=== PATIENT | male | born 1965 | race Caucasian/White ===

== ENCOUNTER 2021-07-17 21:19 | Emergency (ER) | payer OTHER ==
[~2021-07-17] VITALS: Ht 188 cm; Wt 115.7 kg
[~2021-07-17 21:19] MED LIST: ACETAMINOPHEN-1 EAC1 PO; ATORVASTATIN CA40 MG PO; CLEOCIN HCL150 MG PO; CYMBALTA30 MG PO; LISINOPRIL5 MG PO; OMEPRAZOLE20 M2 PO; TESTOSTERON100 MG/ML IM
[2021-07-17 21:59] VITALS: BP 126/91
== END 2021-07-17 21:59 | disposition home or self-care (01) ==
LOC: M.ERS 21:19
DX: K64.4 Residual hemorrhoidal skin tags (principal); I10 Essential (primary) hypertension; E78.00 Pure hypercholesterolemia, unspecified; K21.9 Gastro-esophageal reflux disease without esophagitis; F32.9 Major depressive disorder, single episode, unspecified; Z79.899 Other long term (current) drug therapy